=== PATIENT | male | born 1995 | race Two or more races ===

== ENCOUNTER 2016-12-18 15:05 | Emergency (ER) | payer SELFPAY ==
[~2016-12-18] VITALS: Ht 167.6 cm; Wt 70.3 kg
[2016-12-18 15:12] VITALS: BP 130/83
== END 2016-12-18 17:01 | disposition left against medical advice (07) ==
LOC: ER 15:14
DX: R53.1 Weakness (principal); Z53.21 Procedure and treatment not carried out due to patient leaving prior to being seen by health care provider; Z59.0 Homelessness

== ENCOUNTER 2018-08-04 09:09 | Emergency (ER) | payer MEDICAID ==
[~2018-08-04] VITALS: Ht 167.6 cm; Wt 72.6 kg
[2018-08-04] MEDS ORDERED: ASPirin 81 mg TAB PO ONE (10:00)
[2018-08-04 10:14] LABS: Basophils # (auto) 0 uL; Basophils % (auto) 1.1 % (0.0-2.0); Eosinophils # (auto) 0.1 uL; Hematocrit 47.9 % (41.0-53.0); Hemoglobin 15.9 g/dL (13.5-17.5); Lymphocytes # (auto) 1.2 uL; Lymphocytes % (auto) 40.5 % (10.0-50.0); Mean Corpuscular Hemoglobin 27.2 pg (28.0-32.0); Mean Corpuscular Hgb Conc. 33.1 g/dL (32.0-36.0); Mean Corpuscular Volume 82.2 fL (80.0-100.0); Monocytes # (auto) 0.3 uL; Monocytes % (auto) 10.4 % (0.0-12.0); Neutrophils # (auto) 1.4 uL; Nucleated Red Blood Cells % 0.2 %; Platelet Count (auto) 205 10^3/uL (140-450); Red Blood Cells 5.83 10^6/uL (4.5-5.90); Red Cell Distribution Width 13.4 % (11.8-14.3)
[2018-08-04 10:32] LABS: Alanine Aminotransferase 22 U/L (16-61); Albumin 3.7 g/dL (3.4-5.0); Anion Gap 7 (5-15); Aspartate Aminotransferase 15 U/L (15-37); BUN/Creatinine Ratio 12.1; Blood Urea Nitrogen 13 mg/dL (7-18); Calcium 8.9 mg/dL (8.5-10.1); Carbon Dioxide 29 mmol/L (21-32); Chloride 105 mmol/L (98-107); GFR African American 111 mL/min; GFR Non-African American 92 mL/min; Glucose 99 mg/dL (74-106); Potassium 3.6 mmol/L (3.5-5.1); Sodium 141 mmol/L (136-145)
[2018-08-04 10:36] LABS: Alkaline Phosphatase 143 U/L (45-117); Bilirubin, Total 0.3 mg/dL (0.2-1.0); Total Protein 7.4 g/dL (6.4-8.2)
[2018-08-04 13:55] LABS: Urine Bacteria NONE SEEN /hpf (None Seen); Urine Blood Negative /uL (Negative); Urine Mucus FEW (None Seen); Urine WBC <1 /hpf (0 - 3)
[2018-08-04 14:00] VITALS: BP 131/67
== END 2018-08-04 14:57 | disposition home or self-care (01) ==
LOC: EDBD 09:09 → ER 09:09
DX: R07.89 Other chest pain (principal); F41.9 Anxiety disorder, unspecified; F17.210 Nicotine dependence, cigarettes, uncomplicated; Z88.1 Allergy status to other antibiotic agents; Z88.0 Allergy status to penicillin
CPT/HCPCS: 36415; 71045; 80053; 81001; 83880; 84484; 85025; 93005